=== PATIENT | female | born 1980 | race Caucasian/White ===

== ENCOUNTER 2021-02-08 15:47 | Emergency (ER) | payer MEDICARE, MEDICAID ==
[~2021-02-08] VITALS: Ht 149.9 cm; Wt 63.6 kg
[2021-02-08 15:53] VITALS: BP 128/76
[2021-02-08] MEDS ORDERED: NAPR-56 PO (19:34)
[2021-02-08] MEDS ORDERED: GABA-530 PO (19:34)
[2021-02-08] MEDS ORDERED: CYCL-1 PO (19:34)
[2021-02-08] MEDS ORDERED: ketorolac trometh inj. 60 MG/2 ML VIAL IM ONE (19:35)
[2021-02-08] MEDS ORDERED: HYDROcodone/acetaminophen 10/325mg tab PO ONE (19:35)
== END 2021-02-08 19:50 | disposition home or self-care (01) ==
LOC: ER 15:48
DX: M54.41 Lumbago with sciatica, right side (principal); M54.42 Lumbago with sciatica, left side; R10.2 Pelvic and perineal pain; F17.200 Nicotine dependence, unspecified, uncomplicated; Z79.899 Other long term (current) drug therapy
CPT/HCPCS: 72100; 96372; 99283; J1885